=== PATIENT | male | born 1945 | race Caucasian/White ===

== ENCOUNTER 2017-02-27 09:11 | Emergency (ER) | payer MEDICARE, OTHER ==
[2017-02-27 11:16] LABS: BASOPHILS 0.5 % (0-2); EOSINOPHILS 6.5 % (0-7); HEMATOCRIT 38.9 % (42.0-54.0); HEMOGLOBIN 13.3 g/dL (13.5-17.5); IMMATURE GRANULOCYTES 0.2 % (0-5); LYMPHOCYTES 22.7 % (15-50); MCH 33.7 pg (26.0-34.0); MCHC 34.2 g/dL (31.0-37.0); MCV 98.5 fL (80.0-100.0); MEAN PLATELET VOLUME 9.1 fL (7.4-10.4); MONOCYTES 5.3 % (2-11); NEUTROPHILS 64.8 % (40-80); RBC 3.95 10x6/uL (4.20-6.10); RDW 13.9 % (11.5-14.5); WBC 5.7 10x3/uL (4.8-10.8)
[2017-02-27 11:21] LABS: PLATELET COUNT 183 10x3/uL (130-400)
[2017-02-27 11:28] LABS: ALBUMIN 3.6 g/dL (3.4-5.0); ANION GAP 13.8 mmol/L (8-16); BILIRUBIN - TOTAL 0.54 mg/dL (0.2-1.3); CALCIUM 8.9 mg/dL (8.5-10.1); CARBON DIOXIDE 26.1 mmol/L (21.0-32.0); CREATININE - SERUM 1.2 mg/dL (0.6-1.3); POTASSIUM - SERUM 3.9 mmol/L (3.5-5.1)
== END 2017-02-27 12:25 | disposition home or self-care (01) ==
LOC: D.ER 09:11
PROVIDERS: Emergency Medicine
DX: R20.9 Unspecified disturbances of skin sensation (principal); R53.1 Weakness; I10 Essential (primary) hypertension

== ENCOUNTER → 2017-03-05 08:22 | Outpatient (CLI) | payer MEDICARE, OTHER | END | disposition home or self-care (01) | LOC: D.MRI 08:22 | DX: I63.9 Cerebral infarction, unspecified (principal) ==

== ENCOUNTER 2017-09-23 11:25 | Emergency (ER) | payer MEDICARE, OTHER ==
[2017-09-23 12:15] LABS: BASOPHILS 0.8 % (0-2); EOSINOPHILS 8.4 % (0-7); HEMATOCRIT 38.5 % (42.0-54.0); HEMOGLOBIN 12.8 g/dL (13.5-17.5); IMMATURE GRANULOCYTES 0.2 % (0-5); LYMPHOCYTES 21.5 % (15-50); MCH 33.8 pg (26.0-34.0); MCHC 33.2 g/dL (31.0-37.0); MCV 101.6 fL (80.0-100.0); MEAN PLATELET VOLUME 9.3 fL (7.4-10.4); NEUTROPHILS 61.1 % (40-80); RBC 3.79 10x6/uL (4.20-6.10); WBC 5.1 10x3/uL (4.8-10.8)
[2017-09-23 12:17] LABS: PLATELET COUNT 222 10x3/uL (130-400)
[2017-09-23 12:28] LABS: APPEARANCE CLOUDY (CLEAR); BILIRUBIN NEGATIVE (NEGATIVE); COLOR YELLOW (YELLOW); GLUCOSE NEGATIVE (NEGATIVE); KETONE NEGATIVE (NEGATIVE); NITRITE NEGATIVE (NEGATIVE); PROTEIN TRACE mg/dL (NEGATIVE); UROBILINOGEN NORMAL (NORMAL)
[2017-09-23 12:29] LABS: ALBUMIN 3.8 g/dL (3.4-5.0); ANION GAP 13.2 mmol/L (8-16); BILIRUBIN - TOTAL 0.58 mg/dL (0.2-1.3); CALCIUM 9.3 mg/dL (8.5-10.1); CARBON DIOXIDE 26.8 mmol/L (21.0-32.0); CREATININE - SERUM 1.4 mg/dL (0.6-1.3); PROTEIN - SERUM 6.9 g/dL (6.4-8.2)
[2017-09-23 12:32] LABS: RED CELLS - URINE OCC /hpf (0-5)
[2017-09-23 12:33] LABS: EPITHELIAL CELLS 0-5 /hpf (0-5); MUCUS >1+ /lpf (NONE SEEN)
[2017-09-23 13:01] LABS: BACTERIA MODERATE /hpf (NONE SEEN); HYALINE CAST 0-5 /lpf (NONE SEEN)
== END 2017-09-23 15:00 | disposition home or self-care (01) ==
LOC: D.ER 11:25
PROVIDERS: Emergency Medicine
DX: R53.1 Weakness (principal); R41.0 Disorientation, unspecified; D64.9 Anemia, unspecified; N17.9 Acute kidney failure, unspecified; E86.0 Dehydration; I10 Essential (primary) hypertension

== ENCOUNTER → 2017-10-07 09:53 | Outpatient (CLI) | payer MEDICARE, OTHER | END | disposition home or self-care (01) | LOC: D.MRI 09-30 14:30 | DX: G45.9 Transient cerebral ischemic attack, unspecified (principal) ==

== ENCOUNTER → 2018-03-09 07:51 | Outpatient (CLI) | payer MEDICARE, OTHER | END | disposition home or self-care (01) | LOC: D.MRI 07:51 | DX: M48.061 Spinal stenosis, lumbar region without neurogenic claudication (principal); M54.30 Sciatica, unspecified side; Z98.890 Other specified postprocedural states ==

== ENCOUNTER → 2020-02-24 09:02 | Outpatient (CLI) | payer MEDICARE, OTHER | END | disposition home or self-care (01) | LOC: D.MRI 09:02 → D.CT 11:30 | PROVIDERS: ATTEND Family Medicine | DX: G45.9 Transient cerebral ischemic attack, unspecified (principal); M48.061 Spinal stenosis, lumbar region without neurogenic claudication; R47.01 Aphasia ==

== ENCOUNTER 2021-03-05 08:16 | Day surgery (SDC) | payer MEDICARE, OTHER ==
[~2021-03-05] VITALS: Ht 180.3 cm; Wt 122.7 kg
[~2021-03-05 08:16] MED LIST: AMBIEN5 MG PO; AVAPRO150 MG PO; BACLOFEN10 MG PO; BAYER CHEWABLE81 MG PO; CARDURA8 MG PO; FUROSEMIDE20 MG PO; GABAPENTIN300 MG; K-TAB10 MEQ PO; NEURONTIN 300300 MG PO; NORVASC10 MG PO; PLAVIX75 MG PO; PRAVASTATIN SOD10 MG PO; PROBIOTIC1 EAC1 PO; RELAFEN750 MG PO; ROPINIROLE HCL1 MG; ROPINIROLE HCL1 MG PO; SUPER B COMPLE1 EAC1 PO; VITAMIN D50000 UNI1; WELLBUTRIN SR150 MG PO
[2021-03-05 08:32] LABS: BASOPHILS 1.2 % (0-2); EOSINOPHILS 6.5 % (0-7); HEMATOCRIT 44.2 % (42.0-54.0); MCH 33.4 pg (26.0-34.0); MCHC 33.9 g/dL (31.0-37.0); MCV 98.7 fL (80.0-100.0); MEAN PLATELET VOLUME 6.7 fL (7.4-10.4); MONOCYTES 6.1 % (2-11); NEUTROPHILS 70.2 % (40-80); RBC 4.48 10x6/uL (4.20-6.10); RDW 14.2 % (11.5-14.5); WBC 7.1 10x3/uL (4.8-10.8)
[2021-03-05 08:41] LABS: ANION GAP 13.8 mmol/L (8-16); CALCIUM 8.4 mg/dL (8.5-10.1); CREATININE - SERUM 1.2 mg/dL (0.6-1.3); POTASSIUM - SERUM 3.8 mmol/L (3.5-5.1)
[2021-03-05 08:58] LABS: PLATELET COUNT 220 10x3/uL (130-400)
[2021-03-05 09:53] VITALS: BP 158/63; Ht 180.3 cm; Wt 122.7 kg
--- NOTE | 2021-03-05 13:06 | NUR ---
FAMILY ARRIVED, WHEELED OUT TO FRONT OF HOSPITAL. DISCHARGE INSTRUCTIONS PROVIDED.
--- NOTE | 2021-03-05 15:58 | NUR ---
[address] TRENT. PROCEDURE FINDINGS DISCUSSED WITH PATIENT. Kevin JASSO R.N. 1220 IV HI'ED WITH CATH INTACT. ASSISTED WITH DRESSING. ASSISTED TO PT.'S OWN WHEELCHAIR. UP TO BATHROOM. REPORT TO Kevin CALHOUN R.N.
--- NOTE | 2021-03-05 17:53 | OP ---
PATIENT NAME: AGNES MORRIS MEDICAL RECORD: [id number] :45 LOCATION:D[facility] ADMISSION DATE: SURGEON: GUTIERREZ TRENT MD DATE OF OPERATION: 03/05/2021 PREOPERATIVE DIAGNOSIS: Fecal incontinence. POSTOPERATIVE DIAGNOSES: Fecal incontinence with inadequate bowel prep. PROCEDURE PERFORMED: Total colonoscopy to cecum. SURGEON: Gutierrez Trent MD SALON COORDINATOR: None. BLOOD LOSS: Zero. ANESTHESIA: IV sedation. COMPLICATIONS: None. The risks, possible complications, and alternatives of the procedure were explained to the patient. He elects to proceed. ENDOSCOPIC COURSE: The patient was conveyed to the endoscopy suite electively on 03/05/2021. IV sedation was induced by the anesthesia staff. The patient was placed in the Cutler position. A digital rectal examination was performed. A colonoscope was inserted through the anus. It was easily advanced to the cecum. I slowly withdrew the endoscope. I irrigated and aspirated extensively. The pullback was greater than a 13-minute pullback. I dragged the folds. A combination of normal imaging and narrow band imaging were utilized. I can only rule out obstructing colonic polyps or masses due to the inadequate prep. A retroflexed view was obtained in the rectum. I then unretroflexed the scope and removed it under direct vision. We will call the patient to set him up for a laparoscopic sigmoid diverting colostomy. TRANSINT:[id number] Voice Confirmation ID: [id number] DOCUMENT ID: [id number] GUTIERREZ TRENT MD at 1753 CC: [id number] DICTATION DATE: 03/05/21 1156 SHELL MACHINE OPERATOR: 03/05/21 1549 [facility] 03/05/21 [facility] [address] [place] [address]
== END 2021-03-05 12:40 | disposition home or self-care (01) ==
LOC: D.OPS 08:16
PROVIDERS: Anesthesiology; ATTEND Surgery
DX: R15.9 Full incontinence of feces (principal); R19.7 Diarrhea, unspecified; I10 Essential (primary) hypertension; E78.5 Hyperlipidemia, unspecified